=== PATIENT | female | born 1950 ===

== ENCOUNTER 2018-10-23 06:00 | Day surgery (SDC) | payer OTHER ==
[~2018-10-23 06:00] MED LIST: LEVSIN/SL0.125 MG PO; ULTRACET PO
== END 2018-10-23 11:08 | disposition home or self-care (01) ==
LOC: AMB-ENDOS 06:00
DX: K57.30 Diverticulosis of large intestine without perforation or abscess without bleeding (principal); K64.8 Other hemorrhoids